=== PATIENT | male | born 1975 | race Hispanic/Latino ===

== ENCOUNTER → 2020-08-18 | Outpatient (CLI) | payer OTHER ==
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
== END ==
LOC: M RAD 08:57
PROVIDERS: ATTEND Surgery
DX: M26.602 Left temporomandibular joint disorder, unspecified (principal); R68.84 Jaw pain

== ENCOUNTER 2020-09-09 21:48 | Emergency (ER) | payer OTHER ==
[~2020-09-09] VITALS: Ht 165.1 cm; Wt 65.0 kg
[2020-09-09] MEDS ORDERED: ATOR1TAB19 PO (22:04)
[2020-09-09] MEDS ORDERED: METF10004 PO (22:04)
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
[2020-09-09] MEDS ORDERED: IBUP-1114 PO (23:43)
[2020-09-09] MEDS ORDERED: ONDA-83 PO (23:43)
[2020-09-09] MEDS ORDERED: ONDANSETRON 4 MG ORAL DISINTEGRATING TAB PO ONE (23:45)
[2020-09-09] MEDS ORDERED: IBUPROFEN 400 MG TAB PO ONE (23:45)
[2020-09-10 00:46] VITALS: BP 109/71
== END 2020-09-10 01:21 | disposition home or self-care (01) ==
LOC: M ED 21:48
DX: S06.0X0A Concussion without loss of consciousness, initial encounter (principal); Y04.0XXA Assault by unarmed brawl or fight, initial encounter; Y92.9 Unspecified place or not applicable; Y93.9 Activity, unspecified; Y99.9 Unspecified external cause status; E11.9 Type 2 diabetes mellitus without complications; Z79.84 Long term (current) use of oral hypoglycemic drugs; Z79.899 Other long term (current) drug therapy
CPT/HCPCS: 70450; 70486; 72125; 99284; Q0162